=== PATIENT | female | born 1995 | race Caucasian/White ===

== ENCOUNTER → 2018-11-02 18:08 | Outpatient (CLI) | payer MEDICAID, SELFPAY ==
[2017-10-02 02:45] VITALS: BMI 21.4
[2018-11-02 21:40] LABS: Chlamydia Trachomatis by PCR Negative (Negative); Neisserai gonorrhoeae by PCR Negative (Negative); Probe Check PASS; Sample Adequacy Control PASS; Specimen Processing Control PASS
== END ==
PROVIDERS: Referring Provider Obstetrics & Gynecology; Visit Provider Obstetrics & Gynecology
DX: Z11.3 Encounter for screening for infections with a predominantly sexual mode of transmission (principal)
CPT/HCPCS: 87491; 87591

== ENCOUNTER 2019-07-14 23:06 | Emergency (ER) | payer SELFPAY ==
[2019-07-14 23:07] VITALS: BP 144/81; PULSE 70; RESP 18; TEMP 36.9; O2SAT 100; BMI 21.6
--- NOTE | 2019-07-14 23:16 | ED.DCSUM_ITS ---
History of Present Illness Chief Complaint: Rash Informant: Patient Narrative: Stated for the last few days she has had itchy rash on her neck upper chest and upper back. No exposures that she she can think of that brought it on. She is been trying Latasha with minimal relief. She is never had this before. No new medications. She is unsure what could have caused it. She did not try Benadryl or steroid cream. Current severity is mild. No history of hives. Past Medical History - Allergies and Home Meds Allergies/Adverse Reactions: Allergies Penicillins Allergy (Verified 07/14/19 23:09) Rash Primary Care Physician: Care Physician,No Primary [Primary Care Provider] - Prior records reviewed: Yes Past Medical History: - - Denies Surgical History: - - Reviewed Lives: With Family Smoking Status: Current every day smoker Alcohol: None Drugs: None Review of Systems General: Denies: Chills, Fever, Sweats Eyes: Denies: Visual changes - bilaterally, Diplopia ENT: Denies: Rhinorrhea, Sore throat Cardiovascular: Denies: Chest pain, Palpitations Respiratory: Denies: Dyspnea, Cough, Dyspnea on exertion Gastrointestinal: Denies: Abdominal pain, Nausea, Vomiting, Diarrhea, Melena, Hematochezia Genitourinary: Denies: Dysuria, Hematuria, Frequency Musculoskeletal: Denies: Back pain, Extremity Pain Skin: Reports: Rash. Denies: Wounds Neurological: Denies: Headache, Weakness, Numbness Physical Exam Vital Signs/Narrative: Vital Signs Temp Pulse Resp BP Pulse Ox 07/14/19 23:07 98.4 F 70 18 144/81 H 100 General: Well nourished, Well developed, No Acute Distress Head: Normocephalic, Atraumatic Eyes: Perrl, EOMI ENT: Moist mucous membranes, No rhinorrhea Neck: Supple, Nontender Cardiovascular: Regular rate, Regular rhythm, No murmurs Respiratory: No distress, CTA bilaterally, Chest nontender Abdomen: Soft, Nontender, Nondistended, Normal bowel sounds Back: Nontender, Normal Inspection Extremities: Nontender, No edema Skin: Rash - Has a hive-like rash on her neck on both sides. Nothing in her u pper back. Mild hives to her chest. No evidence of infection. Negative for: Normal color, No rash Neurological: Alert, Oriented x3, Cranial nerves II-XII grossly intact, Normal Strength, Normal Sensation Psychological: Normal affect, Normal Mood Diagnostic/Tx/Re-eval - Medical Decision Making Given prednisone and Benadryl for her hives. She is unsure what could be causing it. We will follow-up as an outpatient. I do not feel she needs further treatment otherwise. ED Disposition - Plan for ED Patient: Disposition: Home or Assisted Living Diagnosis: Urticaria Instructions: Hives Prescriptions: predniSONE tablet 60 mg PO DAILY #15 tab Prescription Printed Referrals: Dusty Jones MD [STAFF PHYSICIAN] -
[2019-07-14] MEDS: predniSONE 20 MG Tablet 40 MG PO (23:22)
[2019-07-14] MEDS: DiphenhydrAMINE 25 MG Capsule 50 MG PO (23:22)
[2019-07-14 23:24] VITALS: RESP 16
--- NOTE | 2019-07-14 23:25 | ED.RN ---
REVIEWED D/C INSTRUCTIONS, FOLLOW UP CARE, PRESCRIPTION, AND S/S THAT WOULD WARRANT A RETURN TO THE ED WITH PT. PT VERBALIZED AN UNDERSTANDING AND DENIES FURTHER QUESTIONS FOR THIS RN. PT SKIN P/W/D, RESP EVEN AND UNLABORED, PT A&O X 3, NO DISTRESS NOTED. PT AMBULATED OUT OF ED, GAIT STEADY.
== END 2019-07-14 23:26 | disposition home or self-care (01) ==
LOC: ED 23:25
PROVIDERS: Emergency Provider Emergency Medicine
DX: L50.9 Urticaria, unspecified (principal); F17.200 Nicotine dependence, unspecified, uncomplicated; Z88.0 Allergy status to penicillin
CPT/HCPCS: 99283

== ENCOUNTER 2021-02-10 12:57 | Emergency (ER) | payer BC, OTHER, SELFPAY ==
[2021-02-10 12:58] VITALS: BP 99/75; PULSE 92; RESP 16; TEMP 37.2; O2SAT 100; BMI 20.5
[2021-02-10 13:08] VITALS: BP 123/71; PULSE 94; RESP 14; O2SAT 99
--- NOTE | 2021-02-10 13:12 | ED.DCSUM_ITS ---
History of Present Illness Chief Complaint: Back Informant: Patient Narrative: 25-year-old female with no significant past medical history presents with concern for right back and flank pain. States it began approximately 4 to 5 days ago. States that it was dull at first but has increased to the point where she could not sleep last night. States that radiates around into her right side. States it is sharp and worse with movement. Mildly nauseous but does not eaten today. Denies any vaginal bleeding or discharge. States that she has had increased urinary frequency. Last menstrual period ended 4 days ago. Past Medical History - Allergies and Home Meds Allergies/Adverse Reactions: Allergies Penicillins Allergy (Verified 02/10/21 12:57) Rash Primary Care Physician: Care Physician,No Primary [Primary Care Provider] - Prior records reviewed: Yes Past Medical History: None Surgical History: no surgical history, - - Reviewed Lives: Spouse/ Significant Other Smoking Status: Never smoker Alcohol: None Drugs: None Review of Systems General: Denies: Chills, Fever, Sweats Eyes: Denies: Visual changes - bilaterally, Diplopia ENT: Denies: Rhinorrhea, Sore throat Cardiovascular: Denies: Chest pain, Palpitations Respiratory: Denies: Dyspnea, Cough, Dyspnea on exertion Gastrointestinal: Denies: Abdominal pain, Nausea, Vomiting, Diarrhea, Melena, Hematochezia Genitourinary: Denies: Dysuria, Hematuria, Frequency Musculoskeletal: Reports: Back pain. Denies: Extremity Pain Skin: Denies: Rash, Wounds Neurological: Denies: Headache, Weakness, Numbness Physical Exam Vital Signs/Narrative: Vital Signs Temp Pulse Resp BP Pulse Ox 02/10/21 13:08 94 14 123/71 H 99 02/10/21 12:58 98.9 F 92 16 99/75 100 Inital Vital Signs reviewed: Yes General: Well nourished, Well developed, No Acute Distress Head: Normocephalic, Atraumatic Eyes: Perrl, EOMI ENT: Moist mucous membranes, No rhinorrhea Neck: Supple, Nontender Cardiovascular: Regular rate, Regular rhythm, No murmurs Respiratory: No distress, CTA bilaterally, Chest nontender Abdomen: Soft, Nondistended, Normal bowel sounds, - - TTP in the right flank. No overlying skin changes. Back: Nontender, Normal Inspection Extremities: Nontender, No edema Skin: Normal color, No rash Neurological: Alert, Oriented x3, Cranial nerves II-XII grossly intact, Normal Strength, Normal Sensation Psychological: Normal affect, Normal Mood Diagnostic/Tx/Re-eval Laboratory Data 02/10/21 13:29 Urine Color Yellow Urine Clarity Cloudy Urine pH 6.0 Ur Specific [place] 1.010 Urine Protein 15 H Urine Glucose (UA) Normal Urine Ketones Negative Urine Occult Blood 25 H Urine Nitrite Positive H Urine Bilirubin Negative Urine Urobilinogen Normal Ur Leukocyte Esterase 500 H Urine RBC 0-5 SEEN Urine WBC 10-25 SEEN Ur Squamous Epith Cells 0-5 SEEN Urine Bacteria 2+ Urine Mucus 0 SEEN Urine Test Negative - Medical Decision Making Patient appears well and nontoxic. Vital signs within normal limits. Not actively vomiting. Evidence of urinary tract infection. Will be treated with Keflex, Zofran, Naprosyn. Advised to return for new or worsening symptoms. Given the patient's current physical exam and history unlikely to be kidney stone. Stable at time of discharge. Impression: 1. UTI ED Disposition - Plan for ED Patient: Disposition: Home or Assisted Living Instructions: ED Urinary Tract Infections in Women Prescriptions: Cephalexin [Keflex] 500 mg PO Q12 #14 capsule Prescription Printed Naproxen [Naprosyn] 500 mg PO BID #14 tablet Prescription Printed Ondansetron [Zofran Odt] 4 mg PO Q8H PRN PRN #10 tablet PRN Reason: Nausea Prescription Printed Referrals: Enrique Arroyo MD [STAFF PHYSICIAN] - 2 Days
[2021-02-10] MEDS: Ondansetron ODT 4 MG Tablet PO (13:18)
[2021-02-10] MEDS: Ketorolac 15 MG/ML Vial IM (13:19)
[2021-02-10 13:34] LABS: Mucous, Urine 0 SEEN /hpf (<or=2+)
[2021-02-10 13:35] LABS: Color, Urine Yellow (Yellow); Glucose, Dipstick Normal (Normal); Ketone-Dipstick Negative (Negative); Leukocyte Esterase-Dipstick 500 /ul (Negative); Nitrite-Dipstick Positive (Negative); Occult Blood-Urine 25 /ul (Negative); Protein-Dipstick 15 mg/dl (Negative); Urine Bilirubin Dipstick Negative (Negative); Urine Clarity Cloudy (Clear); Urine Urobilinogen Normal (Normal)
[2021-02-10 13:40] LABS: Red Blood Cells-Urine 0-5 SEEN /hpf (0-5); Squamous Epithelial Cells - UA 0-5 SEEN /hpf (5-10); White Blood Cells 10-25 SEEN /hpf (0-5)
[2021-02-10 13:41] LABS: Bacteria 2+ /hpf (None Seen); Internal QC Validated? YES +Cl - CLEAR BKGD; Pregnancy, Urine Negative Negative
[2021-02-10 14:14] VITALS: BP 112/74; PULSE 82; RESP 14; O2SAT 98
== END 2021-02-10 14:15 | disposition home or self-care (01) ==
PROVIDERS: Emergency Provider Emergency Medicine
DX: N39.0 Urinary tract infection, site not specified (principal); Z88.0 Allergy status to penicillin
CPT/HCPCS: 81001; 81025; 96372; 99284

== ENCOUNTER 2021-10-22 15:58 | Outpatient (CLI) | payer BC, OTHER, SELFPAY | END 2021-10-22 23:59 | disposition short-term general hospital (02) | LOC: LABSPEC 16:00 | PROVIDERS: Referring Provider Physician Assistant Surgical; Visit Provider Physician Assistant Surgical | DX: U07.1 COVID-19 (principal) | CPT/HCPCS: 87635; U0003 ==

== ENCOUNTER 2021-12-05 05:54 | Day surgery (SDC) | payer BC, OTHER, SELFPAY ==
[2021-12-05 06:40] LABS: Internal QC Validated? YES +Cl - CLEAR BKGD; Pregnancy, Urine Negative Negative
[2021-12-05 06:59] VITALS: BP 110/63; PULSE 77; RESP 16; TEMP 36.9; O2SAT 100; BMI 22.3
[2021-12-05] MEDS: Lactated Ringers 1,000 ML 15 ML IV (07:06)
[2021-12-05 07:16] LABS: Hematocrit 37.3 % (37-47); Hemoglobin 12.8 g/dL (12.0-15.0); Mean Corp Hgb Conc 34.3 g/dL (32-36); Mean Corpuscular Hgb 31.4 pg (27.0-32.0); Mean Corpuscular Volume 91.6 fL (81-99); Mean Platelet Vol. 13.9 fl (6.2-12.0); Platelet Count 152 K/mm3 (150-450); RBC Distribution Width CV 12.5 % (11.6-14.6); RBC Distribution Width SD 41.6 fl (35.1-43.9); Red Blood Count 4.07 M/mm3 (4.2-5.4); White Blood Count 10.5 K/mm3 (4.4-11.0)
--- NOTE | 2021-12-05 07:30 | FALS_PTH ---
PATIENT: HARINDER ROB [place] [facility] [id number] AGE/SX: 26/F ROOM: RE12/05/[address]: Dr. Betty Esteves MD : 1995 BED: DIS: 12/05/2021 SPEC #: [id number] RECD: 12/05/21 10:10 STATUS: RALF RECarrie #: [id number] TISH: 12/05/21 07:[address]: Betty Kearney DEPT: SURGICAL PATHOLOGY RECD BY: Sharon Tinsley ENTERED: 12/05/21 13:04 SP TYPE: FALL TUBES OTHR DR: No Primary Care Phys Tissues: Fallopian tube Procedures: Surgery Specimen Level II HEADER OPERATION: Laparoscopic salpingectomy, Nexplanon removal PRE-OP DIAGNOSIS: Sterilization TISSUE SUBMITTED: Bilateral fallopian tubes MICROSCOPIC DIAGNOSIS Bilateral fallopian tubes, salpingectomy: Bilateral fallopian tubes, no pathologic diagnosis. SJ:amber 12/06/2021 MICROSCOPIC DESCRIPTION Slides are reviewed. GROSS DESCRIPTION Received in fixative is one container labeled with the patient's name and designated bilateral fallopian tubes. The specimen consists of bilateral fallopian tubes including fimbrial ends measuring 5 cm in length and 0.5 cm in diameter and 6 cm in length and 0.5 cm in diameter. The fallopian tubes are not identified as right or left. Sections reveal unremarkable cut surfaces. Janitorial Manager sections are submitted in two cassettes with each cassette containing one fallopian tube. / JANIS:amber 12/05/2021 TC:4 CPT: 85407 x2
--- NOTE | 2021-12-05 07:45 | PCM.HP.STD ---
HPI - General HPI Narrative HARINDER ROB, is a 26 F who presents for tubal sterilization and Nexplanon removal. Denies interval change in PMH since preop visit on 11/29/21. MEDICATIONS HISTORY: Current medications prescribed by our practice are: 1. Nexplanon 68 mg subdermal implant, As Directed ALLERGIES: Amoxicillin, Rash, Penicillins and Hives and/or rash HEMATO-IMMUNOLOGIC - Denies excesive bleeding with cuts SOCIAL HISTORY: Alcohol Use - recovering Smoking - Uses Vapor Pen Diet - balanced Diet Lifestyle - moderate stress lifestyle and single Exercise - minimal Seat Belt Use - always [employer]er [facility] [employer] Description - prep Illicit Drug Use - denies use of street drugs Sexual Activity - single sexual partner Residence - lives with SO and grandmother Place of - [place], [place] Hours Worked - 40 hours per week Spouse-Sig Other Name - Ryamond Spouse-Sig Other Occupation - [employer] Children Name(s) - Jesus (14) [facility] Dr. Rowan, Control - planning tubal FAMILY HISTORY: MENSTRUAL HISTORY: LMP Known?- ApproximateAmount/Duration - 5-7 days, Regularity - heavy, Frequency - monthly days, LMP - 11/12/20, Age Onset Menarche - 13 PAST PREGNANCIES: Total Pregnancies - 2; Full Term Pregnancies - 2; Premature - 0; Abortions, Induced - 0; Abortions, Spontaneous - 0; Ectopics - 0; Multiple Births - 0; Living Children - 2 SURGICAL HISTORY: 1. [place] Teeth Removal ; - PFSH Medical History Anxiety Depression Smoker Wears contact lenses Wears glasses Home Medications etonogestrel [Nexplanon] 68 mg SQ CONT 10/02/17 [History Last Taken Unknown] Lactobacillus acidophilus [Probiotic] 10,000 mmu cells PO DAILY 11/28/21 [History Last Taken Unknown] ascorbic acid (vitamin C) [Vitamin C] 500 mg PO DAILY 11/28/21 [History Last Taken Unknown] biotin 5 mg PO DAILY 11/28/21 [History Last Taken Unknown] cyanocobalamin (vitamin B-12) [Vitamin B-12] 100 mcg PO DAILY 11/28/21 [History Last Taken Unknown] Allergy/AdvReac Type Severity Reaction Status Date / Time Penicillins Allergy Rash Verified 12/05/21 06:47 Family History (Updated 12/05/21 @ 08:[address] Betty Esteves MD) Father Diabetes Surgical History Hx of wisdom tooth extraction Social History Smoking Status: Current some day smoker tobacco type: e-cigarettes Vital Signs Vital Signs Vital Signs: 12/05/21 06:59 Temperature 98.4 F Temperature Source Temporal Pulse Rate 77 Respiratory Rate 16 Respiratory Pattern Normal Blood Pressure 110/63 Blood Pressure Mean 78 Blood Pressure Source Monitor Blood Pressure Position Semi-Fowlers Blood Pressure Location Right Arm Pulse Ox 100 Oxygen Delivery Method Room Air Weight Weight: 59 kg Body Mass Index (BMI) 22.3 Results Lab / Micro Data Result Diagrams: 12/05/21 06:40 Labs: Laboratory Results - last 24 hr 12/05/21 06:32: Urine Test Negative 12/05/21 06:40: WBC 10.5, RBC 4.07 L, Hgb 12.8, Hct 37.3, MCV 91.6, MCH 31.4, MCHC 34.3, RDW Std Deviation 41.6, RDW Coeff of Jena 12.5, Plt Count 152, MPV 13.9 H Assessment & Plan Assessment/Plan (1) Request for sterilization: PLAN: Proceed as planned (2) Surveillance of implantable subdermal contraceptive: PLAN: Proceed as planned
[2021-12-05] MEDS: Lubricating Jelly 60 GM Tube 30 GM (08:00)
[2021-12-05] MEDS: Bupivacaine Mpf 0.5% 30 ML VIAL (08:28)
[2021-12-05 08:50] VITALS: BP 110/63; BP 113/58; PULSE 91; RESP 18; TEMP 36.8; O2SAT 96
--- NOTE | 2021-12-05 08:50 | PCM.OPRPT ---
Problems Associated Problem List Diagnoses (1) Surveillance of implantable subdermal contraceptive: (2) Request for sterilization: Report of Operation Date of Procedure: 12/05/21 Pre-Operative Diagnosis: 1. Sterilization request 2. Multiparity 3. Nexplanon removal desired Post-Operative Diagnosis: 1. Sterilization request 2. Multiparity 3. Nexplanon removal desired Surgery/Procedure Performed:: 1. Nexplanon removal 2. Laparoscopic bilateral salpingectomy Description of Surgical Findings:: Normal-appearing uterus, bilateral tubes and ovaries with a functional right ovarian cyst present. Normal appendix. Surgeon: Betty Kearney microbiology supervisor: Angie Braun Type of Anesthesia: General and Local Anesthesiologist: Jennifer Del Valle Specimen's removed: Bilateral tubes Estimated Blood Loss (mL): 5 Fluids Replaced: 1000 ml Description of Procedure: Indications: 26-year-old 2 para 2-0-0-2 presents for scheduled laparoscopic bilateral salpingectomy and removal of Nexplanon. Patient poorly tolerated rated her Nexplanon and desires permanent sterilization. She was counseled regarding procedural risks, benefits, indications and contraceptive alternatives. She desired to proceed. Informed consent was obtained prior to the procedure. Procedure: The patient was brought to the operating room and spinal was performed. She is placed in the dorsal supine position and induced under general anesthesia and intubated. Her nondominant (left) arm was flexed at her side and the subdermal implant palpated. This area was prepped and an approximately 4 mm incision was made just distal to the implant. The scar capsule was dissected and the implant was grasped and removed with a hemostat. The incision was reapproximated using Steri-Strips. Telfa and was placed and the arm was wrapped with a bulky light. The patient's arms were tucked at her sides and she was repositioned to dorsal lithotomy. An examination under anesthesia was performed. The perineum and abdomen were prepped and draped in sterile fashion. Straight catheterization of the bladder was performed. Patient was placed in the high lithotomy and weighted speculum placed vaginally. The cervix grasped at the anterior cervical lip using a single-tooth tenaculum. The uterus sounded to 7 cm. The ZUMI uterine manipulator was placed and secured. The tenaculum was removed. The patient was placed into low lithotomy and attention turned to the abdomen. An inferior umbilical incision was made using a scalpel and Veress needle was introduced into the abdominal cavity with successful hanging drop test and no aspirate. Abdominal entry pressures were 1 mmHg. The abdomen was insufflated to 15 mmHg. The Veress needle was removed and a 5 mm trocar was placed under laparoscopic guidance confirming entry into the abdominal cavity. Right and left lower quadrant incisions were made and 5 mm ports placed at the sites as well. The pelvis was inspected. See findings as noted with normal anatomy. I proceeded with identifying the left tubal fimbria. The left tube was transected from the mesosalpinx using the Enseal device to the level of the uterine cornua with salpingectomy performed. And in similar fashion, right salpingectomy was performed after identifying the tube and fimbria. The tubes were removed via trochars. There is excellent hemostasis. The abdomen was desufflated and trochars were removed under laparoscopic guidance. Half percent Marcaine was placed at the incisional sites. The skin was closed using 4-0 Monocryl by the SUPERVISOR DATA PROCESSING under my supervision. Steri-Strips and OpSite dressings were placed over the incisions. Attention was turned to the perineum the patient was placed into high lithotomy and weighted speculum was placed vaginally. ZUMI uterine manipulator was removed and the tenaculum sites appeared to be hemostatic. The procedure was complete. The patient was placed into dorsal supine position, awakened, extubated and transferred to the recovery room. Sponge counts correct x2. Complications None Admit VTE Documentation VTE Present on Admission: No VTE Mechan Device Prophylaxis: SCD's VTE Pharm Prophylaxis ordered?: No
[2021-12-05 09:00] VITALS: BP 110/63; BP 111/68; PULSE 74; RESP 18; O2SAT 100
[2021-12-05 09:13] VITALS: BP 106/67; BP 110/63; PULSE 86; RESP 18; TEMP 36.6; O2SAT 100
[2021-12-05] MEDS: HYDROcodone Bitartrate/Apap 5/325 Tablet PO (09:50)
[2021-12-05 10:13] VITALS: BP 110/63; BP 114/67; PULSE 67; RESP 16; TEMP 36.8
== END 2021-12-05 23:59 | disposition home or self-care (01) ==
LOC: SDC 05:57 → AC 05:58
PROVIDERS: Anesthesiology; Referring Provider Obstetrics & Gynecology; Visit Provider Obstetrics & Gynecology
PROC: (CPT 58661; principal; 2021-12-05 07:15)
DX: Z30.2 Encounter for sterilization (principal); Z30.46 Encounter for surveillance of implantable subdermal contraceptive; F17.210 Nicotine dependence, cigarettes, uncomplicated
CPT/HCPCS: 58661; 11982; 00840; 81025; 85027; 86850; 86900; 86901; 87426; 88302; C9803; J7120; C1760; J2405